=== PATIENT | female | born 1965 | race Caucasian/White ===

== ENCOUNTER 2017-01-29 11:37 | Outpatient (CLI) | payer OTHER ==
[2012-03-19 16:47] VITALS: BMI 50.2
== END 2017-01-29 11:53 ==
LOC: D.MAMMO 11:37
DX: Z12.31 Encounter for screening mammogram for malignant neoplasm of breast (principal)

== ENCOUNTER → 2018-07-01 18:10 | Outpatient (CLI) | payer OTHER ==
[2012-03-19 16:47] VITALS: BMI 50.2
== END | disposition home or self-care (01) ==
LOC: D.MAMMO 13:00
DX: Z12.31 Encounter for screening mammogram for malignant neoplasm of breast (principal)

== ENCOUNTER 2019-07-02 09:00 | Outpatient (CLI) | payer OTHER ==
[2012-03-19 16:47] VITALS: BMI 50.2
== END 2019-07-02 10:00 | disposition home or self-care (01) ==
LOC: D.MAMMO 09:00
PROVIDERS: ATTEND Family Medicine
DX: Z12.31 Encounter for screening mammogram for malignant neoplasm of breast (principal)